=== PATIENT | female | born 1965 | race Caucasian/White ===

== ENCOUNTER 2018-10-13 10:07 | Day surgery (SDC) | payer OTHER ==
[~2018-10-13] VITALS: Ht 175.3 cm; Wt 71.2 kg
[~2018-10-13 10:07] MED LIST: MULTIVITAMINS1 EAC7 PO
--- NOTE | 2018-10-13 11:27 | NUR ---
10/13/18 1127 Norah Connelly 1121-PATIENT ARRIVED TO PACU ON 2L NC DROWSY DENIES PAIN OR NAUSEA. ENCOURAGED TO PASS GAS. ABDOMEN SOFT.
--- NOTE | 2018-10-13 18:05 | OR ---
[facility] [address] [place] [address] Signed DATE OF OPERATION: 10/13/2018 SURGEON: Selin Stern MD PREOPERATIVE DIAGNOSES: 1. Colon screening. 2. Family history of polyps (mother). POSTOPERATIVE DIAGNOSIS: Normal colon to cecum. PROCEDURE PERFORMED: Total colonoscopy to cecum. ANESTHESIA: Intravenous sedation, fentanyl 150 mcg, Versed 5 mg. INDICATION: This 53-year-old white woman is a patient of Dr. Jaciel Escalona. She is in good health. She has family history of polyps in her mother, but no family history of colon cancer she knows of. She has never undergone colonoscopy in the past. She is admitted at this time to undergo colonoscopy. She understands the risks of bleeding, infection, and perforation. FINDINGS: The prep was good. Complete colonoscopy was undertaken to the cecum without question. There was no sign of polyps, diverticular formation, colitis, or cancer. DESCRIPTION OF PROCEDURE: The patient was brought to the endoscopy suite and placed in lateral decubitus position, given intravenous sedation to point of slurred speech and nystagmus. Digital rectal examination was normal. An Olympus video colonoscope was passed in the rectum and manipulated throughout the colon, ultimately intubating the cecum itself. The ileocecal valve and appendiceal orifice were well visualized. The scope was withdrawn from that point and examination throughout undertaken showing no sign of abnormality, specifically no bleeding areas, no polyps, diverticular formation, colitis, or cancer. Retroflexed view of the rectum was normal as well. Scope was straightened, withdrawn, removed, and the patient was taken to recovery room in good condition. Electronically Signed By: SELIN STERN MD 10/13/18 1805 PATIENT NAME: EUN PAPPAS OPERATIVE REPORT DATE OF : 69 REPORT #: [id number] PHYSICIAN: SELIN STERN MD PCP: JACIEL ESCALONA MD REPORT IS CONFIDENTIAL AND NOT TO BE RELEASED WITHOUT AUTHORIZATION [facility] [address] [facility] [place], [place] [address] Signed CONCLUDING DIAGNOSIS: Normal colon. PLAN: Recommend repeat colonoscopy in 10 years, sooner if clinically indicated. She will return to the ongoing care of Dr. Escalona otherwise. MD SHELDON Daugherty/MODL /[id number] cc: Jaciel Escalona MD Copies: JACIEL ESCALONA MD ~ Electronically Signed By: SELIN STERN MD 10/13/18 1805 PATIENT NAME: EUN PAPPAS OPERATIVE REPORT DATE OF : 69 REPORT #: [id number] PHYSICIAN: SELIN STERN MD PCP: JACIEL ESCALONA MD REPORT IS CONFIDENTIAL AND NOT TO BE RELEASED WITHOUT AUTHORIZATION
== END 2018-10-13 12:00 | disposition home or self-care (01) ==
LOC: OPS 10:07 → DS 10:07 → OPS 12:00 → DS 13:00
PROVIDERS: Surgery
PROC: 0DJD8ZZ Inspection of Lower Intestinal Tract, Via Natural or Artificial Opening Endoscopic (ICD-10-PCS; principal; 2018-10-13 13:00)
DX: Z12.11 Encounter for screening for malignant neoplasm of colon (principal); Z83.71 Family history of colonic polyps; Z90.711 Acquired absence of uterus with remaining cervical stump
CPT/HCPCS: 99153; G0500; J2250; J3010; J7120